=== PATIENT | male | born 1965 | race Caucasian/White ===

== ENCOUNTER → 2016-11-21 | Outpatient (CLI) | payer OTHER ==
[2016-11-21 16:31] LABS: CALCIUM 9.3 mg/dL (8.5-10.1); GFR 79.4; POTASSIUM 3.7 mmol/L (3.5-5.1)
== END | disposition home or self-care (01) ==
LOC: LAB 15:48
PROVIDERS: ATTEND Nurse Practitioner Occupational Health
DX: N40.1 Benign prostatic hyperplasia with lower urinary tract symptoms (principal); Z12.5 Encounter for screening for malignant neoplasm of prostate
CPT/HCPCS: 36415; 80048; G0103

== ENCOUNTER → 2016-11-26 | Outpatient (CLI) | payer OTHER ==
[~2016-11-26] MED LIST: IOHEXOL 300 MG/ML 75 ML VIAL IV ONE
--- NOTE | 2016-11-26 15:49 | RAD ---
EXAM: CT abdomen/pelvis with and without contrast. HISTORY: Hematuria. TECHNIQUE: Computed tomography of the abdomen and pelvis was performed before and after the intravenous administration of 75 mL [id number]. COMPARISON: None. FINDINGS: Lung windows through the visualized portions of the bases reveal mild atelectasis. Bone windows reveal no suspicious lesions. There are no solid renal lesions. There is no hydronephrosis. There is no nephroureterolithiasis. Images demonstrate no clear urothelial lesions. The prostate is at least mildly enlarged. There is mild diffuse bladder wall thickening. There is an anastomotic suture line along the colon. Left colonic diverticulosis is moderate. The appendix is not inflamed. There is no obstruction. Diffuse hepatic steatosis is at least moderate. There is focal fatty sparing adjacent to the gallbladder fossa. The gallbladder, pancreas, adrenal glands and spleen are unremarkable. IMPRESSION: 1. Mild prostatic hypertrophy with mild lateral wall thickening. Correlate for chronic obstruction or inflammation. 2. No focal renal lesions. No nephroureterolithiasis or clear urothelial lesions. 3. At least moderate diffuse hepatic steatosis. *One or more of the following individualized dose reduction techniques were utilized for this examination: 1. Automated exposure control. 2. Adjustment of the mA and/or kV according to patient size. 3. Use of iterative reconstruction technique.
== END | disposition home or self-care (01) ==
LOC: CT 11:56
PROVIDERS: ATTEND Nurse Practitioner Occupational Health
DX: K76.0 Fatty (change of) liver, not elsewhere classified (principal); N40.0 Benign prostatic hyperplasia without lower urinary tract symptoms; K57.30 Diverticulosis of large intestine without perforation or abscess without bleeding; J98.11 Atelectasis
CPT/HCPCS: 74178; Q9967